=== PATIENT | male | born 1975 | race Caucasian/White ===

== ENCOUNTER 2018-03-03 09:59 | Day surgery (SDC) | payer OTHER ==
[~2018-03-03] VITALS: Ht 160 cm; Wt 73.5 kg
[2018-03-03] MEDS ORDERED: OMEP20TC12 PO (10:59)
[2018-03-03] MEDS ORDERED: MIDAZOLAM 2 MG/2 ML VIAL ONE (11:54)
[2018-03-03] MEDS ORDERED: fentaNYL 0.05 MG/ML VIAL ONE (11:54)
[2018-03-03] MEDS ORDERED: MIDAZOLAM 2 MG/2 ML VIAL IVP ONE (12:15)
== END 2018-03-03 12:50 | disposition home or self-care (01) ==
LOC: MDS 09:59 → MMU 10:04 → MDS 12:50
PROVIDERS: ATTEND Internal Medicine Gastroenterology
DX: C16.9 Malignant neoplasm of stomach, unspecified (principal); E66.3 Overweight; Z68.28 Body mass index [BMI] 28.0-28.9, adult; Z90.49 Acquired absence of other specified parts of digestive tract; Z98.890 Other specified postprocedural states; Z79.899 Other long term (current) drug therapy
CPT/HCPCS: 43239; 88307; 88313; 88342; 88361; J2250; J3010